=== PATIENT | female | born 1960 | race African-American/Black ===

== ENCOUNTER → 2017-05-08 | Outpatient (CLI) | payer OTHER ==
[~2017-05-08] MED LIST: CARBAMAZEPINE100 M1 PO; LAMOTRIGINE50 MG PO; MEDROL2 MG PO; ONFI10 MG PO; SIMVASTATIN40 MG PO
== END ==
LOC: MRI 06:58
DX: I63.9 Cerebral infarction, unspecified (principal); G40.909 Epilepsy, unspecified, not intractable, without status epilepticus

== ENCOUNTER → 2017-05-11 | Outpatient (CLI) | payer OTHER | LOC: PET → MRI 05-08 15:48 → PET 06:58 | DX: G40.909 Epilepsy, unspecified, not intractable, without status epilepticus (principal) ==

== ENCOUNTER 2017-09-09 11:15 | Emergency (ER) | payer OTHER ==
[~2017-09-09] VITALS: Ht 149.9 cm; Wt 63.0 kg
[2017-09-09] MEDS ORDERED: LAMOTRIGINE50 MG PO (11:26)
[2017-09-09] MEDS ORDERED: SIMVASTATIN40 MG PO (11:27)
[2017-09-09] MEDS ORDERED: CARBAMAZEPINE100 M1 PO (11:27)
[2017-09-09 12:21] VITALS: BP 134/72
== END 2017-09-09 12:22 | disposition home or self-care (01) ==
LOC: ER 11:15
DX: G40.A09 Absence epileptic syndrome, not intractable, without status epilepticus (principal); Z90.721 Acquired absence of ovaries, unilateral; Z90.49 Acquired absence of other specified parts of digestive tract

== ENCOUNTER → 2017-11-30 | Outpatient (CLI) | payer OTHER | LOC: PET 08:31 | DX: G40.909 Epilepsy, unspecified, not intractable, without status epilepticus (principal) ==

== ENCOUNTER 2017-12-15 08:38 | Emergency (ER) | payer OTHER ==
[~2017-12-15] VITALS: Ht 149.9 cm; Wt 62.6 kg
--- NOTE | ~2017-12-15 | EKG ---
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
[~2017-12-15 08:38] MED LIST changes: -MEDROL2 MG PO; -ONFI10 MG PO
[2017-12-15] MEDS ORDERED: ONFI10 MG PO (09:07)
[2017-12-15 09:11] LABS: ABSOLUTE NEUTROPHILS 1.7 thou/uL (1.4-8.2); BASOPHILS 0.8 % (0.0-2.0); EOSINOPHILS 1.6 % (0.0-3.0); HEMATOCRIT 41.2 % (37.0-47.0); HEMOGLOBIN 13.8 gm/dL (12.0-15.0); MCH 30.2 pg (26.0-34.0); MCHC 33.5 g/dL (28.0-37.0); MCV 90.2 fL (80.0-100.0); MONOCYTES 6.9 % (1.0-8.0); PLATELET COUNT 220 thou/uL (150-400); POLYS 42.7 % (36.0-66.0); RBC 4.56 mil/uL (4.20-5.00); RDW 13.4 % (10.5-14.5)
[2017-12-15] MEDS ORDERED: MEDROL2 MG PO (09:13)
[2017-12-15 09:24] LABS: URINE BILIRUBIN NEGATIVE (Negative); URINE BLOOD NEGATIVE (Negative); URINE CLARITY CLEAR; URINE COLOR YELLOW; URINE GLUCOSE-RANDOM* NEGATIVE (Negative); URINE KETONES NEGATIVE (Negative); URINE LEUKOCYTES-REFLEX NEGATIVE (Negative); URINE NITRITE-REFLEX NEGATIVE (Negative); URINE PROTEIN (DIPSTICK) NEGATIVE (Negative); URINE UROBILINOGEN 0.2 E.U./dl (0.2-1.0)
[2017-12-15 09:25] LABS: CALCIUM 9.3 mg/dL (8.5-10.1); CREATININE 0.9 mg/dL (0.6-1.0); POTASSIUM 3.9 mmol/L (3.5-5.1)
[2017-12-15 09:33] LABS: AMP/METHAMP Negative (Negative); BARBITURATES Negative (Negative); BENZODIAZEPINES POSITIVE (Negative); COCAINE Negative (Negative); METHADONE Negative (Negative); OPIATES Negative (Negative); PCP Negative (Negative)
[2017-12-15 10:56] VITALS: BP 157/83
== END 2017-12-15 10:57 | disposition home or self-care (01) ==
LOC: ER 08:38
PROVIDERS: Emergency Medicine
DX: R42 Dizziness and giddiness (principal); R41.0 Disorientation, unspecified; R26.9 Unspecified abnormalities of gait and mobility; Z90.49 Acquired absence of other specified parts of digestive tract; Z90.721 Acquired absence of ovaries, unilateral

== ENCOUNTER → 2018-01-10 | Outpatient (CLI) | payer OTHER ==
[~2018-01-10] MED LIST changes: +MEDROL2 MG PO; +ONFI10 MG PO
== END ==
LOC: BC 03:40
DX: Z12.31 Encounter for screening mammogram for malignant neoplasm of breast (principal)

== ENCOUNTER 2018-01-25 12:40 | Emergency (ER) | payer OTHER ==
[~2018-01-25] VITALS: Ht 149.9 cm; Wt 62.6 kg
[2018-01-25 12:40] VITALS: BP 146/76
== END 2018-01-25 14:20 | disposition home or self-care (01) ==
LOC: ER 12:40
DX: R41.82 Altered mental status, unspecified (principal); R56.9 Unspecified convulsions; R41.0 Disorientation, unspecified

== ENCOUNTER → 2018-06-24 | Outpatient (CLI) | payer OTHER ==
[~2018-06-24] VITALS: Ht 149.9 cm; Wt 61.2 kg
[~2018-06-24] MED LIST changes: +ESTRACE0.5 MG PO
--- NOTE | 2018-06-25 16:06 | PATH ---
[facility] [place] [address] PATHOLOGY RPT PROCEDURE Name: ILEANA PATELAnahi Hardy Room #: REG [facility].#: [id number] ������������������ Admission: 06/24/18 ������������������ Date of : 62 Discharge: Report #: [id number] Path Case #: [id number] [facility] Accession Number: [id number] . 01 Material submitted: . PART A: BX POLYP AT PROXIMAL ASCENDING COLON PART B: BX POLYP AT HEPATIC FLEXURE PART C: BX POLYP AT 50CM . 01 Clinical history: . Screening Diverticulosis, colon polyps, hemorrhoids . 02 Diagnosis: A. Polyp, at proximal ascending colon, endoscopic biopsy: - Tubular adenoma. - Negative for high-grade dysplasia. . B. Polyp x2, at hepatic flexure, endoscopic biopsy: - Reactive hyperplastic changes. - Negative for dysplasia. . C. Polyp, at 50 cm, endoscopic biopsy: - Tubular adenoma. - Negative for high-grade dysplasia. . (IUV:michelle; 06/25/2018) MBR/06/25/2018 . 02 Electronically signed: . Gela Hernadez MD, Pathologist NPI- [id number] . 01 Gross description: . A. The specimen is received in formalin, labeled "Bing Patel, BX polyp at proximal ascending colon" and consists of a fragment of minaya tissue measuring 0.8 x 0.3 x 0.1 cm which is entirely submitted in A1. . B. The specimen is received in formalin, labeled "Bing Patel, BX polyp at hepatic flexure x2" and consists of 3 fragments of minaya tissue measuring between 0.3 x 0.2 cm and 0.9 x 0.4 x 0.1 cm. They are entirely submitted in B1. . C. The specimen is received in formalin, labeled "Bing Patel, BX polyp at 50 cm" and consists of a fragment of minaya tissue measuring 0.6 x 0.3 x 0.1 cm which is entirely submitted in C1. (SDY; 06/24/2018) [place] [address] PATHOLOGY RPT PROCEDURE Name: PATELBING D Room #: REG [facility] Kee#: [id number] ������������������ Admission: 06/24/18 ������������������ Date of : 62 Discharge: Report #: [id number] Path Case #: [id number] SYU/SYU . 02 Pathologist provided ICD-10: D12.2, K63.5, D12.6 . 02 CPT . 816260, 908821, 099662 Specimen Comment: A courtesy copy of this report has been sent to Specimen Comment: [phone], . Specimen Comment: Report sent to / DR HERNANDEZ Performed at: [address], [place], [place] [id number] MD Zay Quick MD Phone: [phone] Performed at: [address] [id number] MD Gela Hernadez MD Phone: [phone]
--- NOTE | 2018-06-27 12:03 | P ---
[facility] [address] [place] [address] PROCEDURE REPORT Name: HUGO CHOUDHURY Room #: REG [facility]#: [id number] Admission: 06/24/18 ������������������ Attend Phys: Michael Greenberg MD Discharge: ������������������ Date of : 62 Report #: [id number] THIS REPORT FOR: //name// CC: Michael GLASER TYPE OF REPORT: Outpatient colonoscopy report. BRIEF HISTORY: The patient is a 57-year-old woman for screening colonoscopy. No first-degree relatives with colon cancer but her aunts had colon cancer in her mid 50s. PREOPERATIVE DIAGNOSIS: Screening colonoscopy. POSTOPERATIVE DIAGNOSES: 1. Multiple diminutive colon polyps. 2. Occasional diverticulum, left colon. 3. Small internal hemorrhoids. MEDICATIONS: Deep sedation with propofol per Anesthesia. SPECIMENS: 1. Diminutive polyp, proximal ascending colon. 2. Diminutive polyps x 2, hepatic flexure. 3. Diminutive polyp at 50 cm. ESTIMATED BLOOD LOSS: 3 mL. PROCEDURE: Colonoscopy to cecum and terminal ileum with biopsy. FINDINGS: Prior to propofol sedation, procedure of colonoscopy was discussed with the patient as well as potential risks and its complications. She indicates she understands and desires to proceed. DESCRIPTION OF PROCEDURE: With the patient in left lateral decubitus position, digital examination was completed, which revealed no abnormalities. Subsequently, the Olympus video colonoscope was introduced in the rectum, advanced under direct vision to the cecum. Done with minimal difficulty. The cecum was identified by the ileocecal valve and the appendiceal orifice. I was able to visualize the distal segment of the terminal ileum, which was inspected and noted to be unremarkable. At that point, scope was slowly withdrawn and careful circumferential views obtained including retroflexion of the scope and the ascending colon. Upon slow withdrawal of the scope, the prep was generally good. However, there were some limitations of the proximal colon. This was cleaned up as well as possible. Overall, an adequate prep was obtained. As we withdrew the scope, a diminutive polyp was seen and removed by biopsy and in the [facility] [address] [place] [address] PROCEDURE REPORT Name: HUGO CHOUDHURY Room #: REG [facility].#: [id number] Admission: 06/24/18 ������������������ Attend Phys: Michael Greenberg MD Discharge: ������������������ Date of : 62 Report #: [id number] proximal ascending colon, there was one. At the hepatic flexure, there were 2 removed with biopsy forceps and at 50 cm, another diminutive polyp removed with biopsy forceps. An occasional diverticulum was seen in particular the left colon, but there is no endoscopic evidence of diverticulitis. The scope was withdrawn in the rectum. Upon retroflexion, small hemorrhoids were seen. Scope was withdrawn. The patient tolerated the procedure well. CONDITION OF THE PATIENT UPON DISCHARGE: Following procedure, the patient drowsy, aroused, conversant and will be discharged to home when fully ambulatory. INSTRUCTIONS TO THE PATIENT AND FAMILY AT THE TIME OF DISCHARGE: We will follow up on the pathology and if all 3 polyps are adenomas, she should return in 3 years, otherwise she should return in 5 years. Withdrawal time from the cecum was 13 minutes and 9 seconds. ��������������������������������������������� <ELECTRONICALLY SIGNED> ���������������������������������������� By: Michael Greenberg MD ��������������������������������������������� 06/27/18 1203 1157 0341 Michael Greenberg MD /nt
== END | disposition home or self-care (01) ==
LOC: GI 08:50
DX: Z12.11 Encounter for screening for malignant neoplasm of colon (principal); Z80.0 Family history of malignant neoplasm of digestive organs; D12.2 Benign neoplasm of ascending colon; D12.5 Benign neoplasm of sigmoid colon; K63.5 Polyp of colon; K57.30 Diverticulosis of large intestine without perforation or abscess without bleeding; K64.8 Other hemorrhoids; E78.5 Hyperlipidemia, unspecified; Z90.49 Acquired absence of other specified parts of digestive tract; Z98.51 Tubal ligation status; Z98.890 Other specified postprocedural states; Z79.899 Other long term (current) drug therapy
CPT/HCPCS: 62110; 62900

== ENCOUNTER 2020-04-12 14:23 | Emergency (ER) | payer OTHER ==
[~2020-04-12] VITALS: Ht 149.9 cm; Wt 62.6 kg
[2020-04-12 16:15] VITALS: BP 122/78
== END 2020-04-12 16:16 | disposition home or self-care (01) ==
LOC: ER 14:23
DX: S20.211A Contusion of right front wall of thorax, initial encounter (principal); E78.5 Hyperlipidemia, unspecified; Z90.49 Acquired absence of other specified parts of digestive tract; Z98.51 Tubal ligation status; Z79.899 Other long term (current) drug therapy; V49.88XA Car occupant (driver) (passenger) injured in other specified transport accidents, initial encounter; Y93.89 Activity, other specified; Y92.413 State road as the place of occurrence of the external cause; Y99.9 Unspecified external cause status

== ENCOUNTER → 2020-12-21 | Outpatient (CLI) | payer OTHER ==
[2020-12-21 12:05] LABS: BASOPHILS 0.7 % (0.0-2.0); EOSINOPHILS 2.6 % (0.0-3.0); LYMPHOCYTES 59.4 % (24.0-44.0); MCH 30.2 pg (26.0-34.0); MCHC 33.3 g/dL (28.0-37.0); MCV 90.7 fL (80.0-100.0); MONOCYTES 8.3 % (1.0-8.0); PLATELET COUNT 262 thou/uL (150-400); RBC 4.63 mil/uL (4.20-5.00); RDW 13.2 % (10.5-14.5); WBC 3.3 thou/uL (4.0-11.0)
[2020-12-21 12:36] LABS: ALBUMIN 3.7 g/dL (3.4-5.0); ANION GAP 3 mmol/L (7-16); BUN 13 mg/dL (7-18); CALCIUM 9.1 mg/dL (8.5-10.1); CHLORIDE 103 mmol/L (98-107); CHOLESTEROL 258 mg/dL (<200); CO2 32 mmol/L (21-32); CREATININE 0.9 mg/dL (0.6-1.0); GLUCOSE 98 mg/dL (74-106); HDL CHOLESTEROL 80 mg/dL (>40); LDL CHOLESTEROL 146 mg/dL (<100); POTASSIUM 3.9 mmol/L (3.5-5.1); SGOT 24 U/L (15-37); SGPT 39 U/L (30-65); SODIUM 138 mmol/L (136-145); TC:HDL 3.2 Ratio (Not establshd); TOTAL BILIRUBIN 0.3 mg/dL (0.2-1.0); TOTAL PROTEIN 7.9 g/dL (6.4-8.2); TRIGLYCERIDE 162 mg/dL (<150); VLDL 32 mg/dL (<40)
== END ==
LOC: LAB 11:17
PROVIDERS: ATTEND Nurse Practitioner
DX: Z00.00 Encounter for general adult medical examination without abnormal findings (principal); Z13.220 Encounter for screening for lipoid disorders

== ENCOUNTER → 2020-12-22 | Outpatient (CLI) | payer OTHER | LOC: BC 09:45 → ULTRA 09:45 → BC 13:47 | PROVIDERS: ATTEND Nurse Practitioner | DX: N63.12 Unspecified lump in the right breast, upper inner quadrant (principal); N63.13 Unspecified lump in the right breast, lower outer quadrant ==

== ENCOUNTER → 2020-12-27 | Outpatient (CLI) | payer OTHER ==
--- NOTE | 2020-12-29 18:06 | PATH ---
[facility] [address] [place] [address] PATHOLOGY RPT PROCEDURE Name: MACEYBING Room #: REG [facility] Helen.#: [id number] Admission: 12/27/20 Date of : 62 Discharge: Report #: [id number] Path Case #: [id number] [facility] Accession Number: [id number] . 01 Material submitted: . breast - RIGHT BREAST NODULE. Modifiers: right . 01 Clinical history: . Right breast nodule . 02 Diagnosis: Breast tissue, right central, needle biopsy: - Breast tissue with significant fat necrosis with lipogranulomas, fibrosis, chronic inflammation, and hemorrhage. - Negative for atypia or malignancy. LBQ 12/29/2020 1649 Local . 02 Comment: This case was co-reviewed by Dr. Gabriella Setin on 12/29/2020 who agrees with the above diagnosis. (SCA/db; 12/29/2020) . 02 Electronically signed: . Dillon Tran DO, Pathologist NPI- [id number] . 01 Gross description: . The specimen is received in formalin, labeled "Bing Patel, right". The source is additionally listed on the requisition as "right central". Received are 6 needle cores of fibrofatty tissue measuring 3.0 x 1.0 x 0.2 cm in aggregate dimensions. The specimen is submitted entirely in cassettes A1 to A3. The specimen is collected at 1357 and placed into formalin at 1407 on 12/27/2020. The specimen is removed from formalin at 2340 on 0.21. The total formalin fixation time is 9 hours and 33 minutes.([facility]; 12/27/2020) [facility] 12/27/2020 1734 Local . 02 Pathologist provided ICD-10: N60.31, N61.0, N64.1 . 02 CPT . 887576 Specimen Comment: A courtesy copy of this report has been sent to [phone] Specimen Comment: [phone] Specimen Comment: Report sent to / DR HERNANDEZ Performed at: 01 [place] [address] PATHOLOGY RPT PROCEDURE Name: BING PATEL Room #: REG [facility] Vidhya#: [id number] Admission: 12/27/20 Date of : 62 Discharge: Report #: [id number] Path Case #: [id number] [facility] [address] [address], [place], [place] [id number] MD Yahir Jaimes MD Phone: [phone] [facility]formed at: [facility] [address] [id number] MD Florian Morris MD Phone: [phone]
== END | disposition home or self-care (01) ==
LOC: RAD 13:00
PROVIDERS: ATTEND Nurse Practitioner
DX: N60.31 Fibrosclerosis of right breast (principal); N61.0 Mastitis without abscess; N64.1 Fat necrosis of breast; R92.1 Mammographic calcification found on diagnostic imaging of breast; Z98.890 Other specified postprocedural states; Z79.899 Other long term (current) drug therapy